=== PATIENT | female | born 1960 | race Caucasian/White ===

== ENCOUNTER 2022-11-30 19:33 | Inpatient (IN) | payer BC ==
[~2022-11-30] VITALS: Ht 167.6 cm; Wt 57.6 kg
[2022-11-30] MEDS ORDERED: NACL 0.9% 1,000 ML IV ONE (19:45)
[2022-11-30 19:55] VITALS: BP_SYST 114
[2022-11-30 20:30] LABS: BASOPHILS % (AUTO) 0.5 % (0.0-2.0); EOSINOPHILS % (AUTO) 0.1 % (0.0-4.0); HEMATOCRIT 31.5 % (36-48); HEMOGLOBIN 10.5 g/dL (12.0-16.0); LYMPHOCYTES # (AUTO) 0.7 K/uL (1.0-5.5); LYMPHOCYTES % (AUTO) 16.3 % (20.5-51.5); MEAN CORPUSCULAR HEMOGLOBIN 28 pg (27-31); MEAN CORPUSCULAR HGB CONC 34 % (32-36); MEAN CORPUSCULAR VOLUME 83 fL (79.0-98.0); MONOCYTES # (AUTO) 0.6 K/uL (0.0-1.0); MONOCYTES % (AUTO) 12.1 % (1.7-9.3); NEUTROPHILS # (AUTO) 3.2 K/uL (1.8-7.7); PLATELET COUNT (AUTO) 265 K/uL (130-430); RED BLOOD CELL COUNT(AUTO) 3.81 MIL/uL (4.2-6.2); RED CELL DISTRIBUTION WIDTH 17.4 % (9.0-15.0); WHITE BLOOD COUNT (AUTO) 4.6 K/uL (4.8-10.8)
[2022-11-30 20:48] LABS: INR 1.1 (0.8-1.2); PROTHROMBIN TIME 11.5 SECS (9.5-12.5)
[2022-11-30 20:58] LABS: ANION GAP 9 (5-15); CALCIUM 7.7 mg/dL (8.4-11.0); CHLORIDE 101 mmol/L (98-107); CREATININE 0.58 mg/dL (0.55-1.30); GFR AFRICAN AMERICAN 135 mL/min (>90); GLUCOSE 129 mg/dL (70-99); UREA NITROGEN, BLOOD 19 mg/dL (8-21)
[2022-11-30 21:06] LABS: ALANINE AMINOTRANSFERASE 12 U/L (12-78); ALBUMIN 2.6 g/dL (3.4-4.8); ASPARTATE AMINOTRANSFERASE 12 U/L (10-37); TOTAL BILIRUBIN 0.3 mg/dL (0.0-1.0)
[2022-11-30] MEDS ORDERED: PIPERACILLIN/TAZO 3.375 GM in NS 50 ML IV ONE (21:45)
[2022-11-30] MEDS ORDERED: ONDANSETRON HCL 4 MG/2 ML VIAL IVP ONE (23:45)
[2022-11-30] MEDS ORDERED: MORPHINE 4 MG INJ. 4 MG/ML VIAL IVP ONE (23:45)
[2022-11-30] MEDS ORDERED: PIPERACILLIN/TAZOBACTAM 3.375 GM/VIAL (ZOSYN) IV ONE (23:50)
[2022-12-01] MEDS ORDERED: BACL20TA PO (02:51)
[2022-12-01] MEDS ORDERED: LEVE500T99 PO (02:51)
[2022-12-01] MEDS ORDERED: COR3.125 PO (02:51)
[2022-12-01] MEDS ORDERED: LEVO88TA5 PO (02:51)
[2022-12-01] MEDS ORDERED: CYM30 PO (02:51)
[2022-12-01 04:23] LABS: BILIRUBIN,URINE NEGATIVE (NEGATIVE); BLOOD, URINE 2+ (NEGATIVE); CLARITY/URINE SL CLOUDY (CLEAR); COLOR,URINE YELLOW (YELLOW); GLUCOSE,URINE NEGATIVE (NEGATIVE); KETONES,URINE NEGATIVE (NEGATIVE); LEUKOCYTE ESTERASE ,URINE 3+ (NEGATIVE); NITRITE, URINE NEGATIVE (NEGATIVE); PROTEIN URINE NEGATIVE (NEGATIVE); UROBILINOGEN,URINE 0.2 (0.2-1.0)
[2022-12-01 04:32] LABS: BACTERIA,URINE FEW /HPF (None Seen)
[2022-12-01] MEDS ORDERED: MORPHINE 4 MG INJ. 4 MG/ML VIAL IVP PRN (06:00)
[2022-12-01] MEDS ORDERED: ONDANSETRON HCL 4 MG/2 ML VIAL IVP PRN (06:00)
[2022-12-01] MEDS ORDERED: NALOXONE HCL 0.4 MG/ML AMP (NARCAN) IVP PRN (06:00)
[2022-12-01] MEDS ORDERED: PIPERACILLIN/TAZO 3.375/DEX-IS 50 ML IV SCH (06:00)
[2022-12-01] MEDS ORDERED: LORazepam 2 MG/ML VIAL IVP PRN (06:00)
[2022-12-01] MEDS ORDERED: MORPHINE 2 MG/ML INJ. SYRINGE IVP PRN (06:00)
[2022-12-01] MEDS: D5/0.45 NS 1,000 ML IV SCH ×3 (06:09→18:15)
[2022-12-01 06:44] VITALS: BP_SYST 131
[2022-12-01] MEDS: LEVOTHYROXINE SODIUM 0.088 MG TABLET PO SCH (07:00)
[2022-12-01] MEDS: CARVEDILOL 3.125 MG TABLET (COREG) PO SCH ×2 (08:35→20:26)
[2022-12-01] MEDS: DULoxetine HCL 30 MG CAPSULE.DR (CYMBALTA) PO SCH (08:36)
[2022-12-01] MEDS ORDERED: levETIRAcetam 500 MG TABLET PO SCH (09:00)
[2022-12-01 10:49] LABS: BASOPHILS % (AUTO) 0.5 % (0.0-2.0); EOSINOPHILS % (AUTO) 0.1 % (0.0-4.0); LYMPHOCYTES # (AUTO) 0.9 K/uL (1.0-5.5); LYMPHOCYTES % (AUTO) 12.6 % (20.5-51.5); MEAN CORPUSCULAR HEMOGLOBIN 27 pg (27-31); MEAN CORPUSCULAR HGB CONC 33 % (32-36); MEAN CORPUSCULAR VOLUME 84 fL (79.0-98.0); MONOCYTES # (AUTO) 0.6 K/uL (0.0-1.0); MONOCYTES % (AUTO) 8.8 % (1.7-9.3); NEUTROPHILS # (AUTO) 5.2 K/uL (1.8-7.7); PLATELET COUNT (AUTO) 232 K/uL (130-430); RED BLOOD CELL COUNT(AUTO) 4.42 MIL/uL (4.2-6.2); RED CELL DISTRIBUTION WIDTH 17.2 % (9.0-15.0); WHITE BLOOD COUNT (AUTO) 6.7 K/uL (4.8-10.8)
[2022-12-01] MEDS ORDERED: DEXAMETHASONE 1 MG TABLET (DECADRON) PO SCH (11:00)
[2022-12-01 11:12] LABS: ALBUMIN 2.9 g/dL (3.4-4.8); C-REACTIVE PROTEIN QUANT 5.7 mg/dL (0-0.5); CALCIUM 7.8 mg/dL (8.4-11.0); CREATININE 0.48 mg/dL (0.55-1.30); TOTAL BILIRUBIN 0.3 mg/dL (0.0-1.0)
[2022-12-01 11:55] VITALS: BP_SYST 150
[2022-12-01] MEDS ORDERED: AZITHROMYCIN 500 MG in NS 250 ML IV ONE (12:00)
[2022-12-01] MEDS: ERTAPENEM SODIUM 1 GM in NS 50 ML IV SCH (13:05)
[2022-12-01] MEDS ORDERED: ENOXAPARIN SODIUM 40 MG/0.4 ML SYRINGE SUBCUT ONE (13:30)
[2022-12-01] MEDS ORDERED: PIPERACILLIN/TAZO 4.5GM/DEX-IS 100 ML IV ONE (14:45)
[2022-12-01 15:07] LABS: FREE T4 (FREE THYROXINE) 1.1 ng/dL (0.6-1.6); THYROID STIMULATING HORMONE 2.71 uIu/mL (0.34-4.82)
[2022-12-01 18:40] VITALS: BP_SYST 118
[2022-12-01 20:00] VITALS: BP_SYST 143
[2022-12-01] MEDS: ENOXAPARIN SODIUM 40 MG/0.4 ML SYRINGE SUBCUT SCH (20:26)
[2022-12-01] MEDS: PIPERACILLIN/TAZO 4.5GM/DEX-IS 100 ML IV SCH (21:28)
[2022-12-02 00:59] VITALS: BP_SYST 139
[2022-12-02] MEDS: D5/0.45 NS 1,000 ML IV SCH ×3 (05:18→20:10)
[2022-12-02] MEDS: PIPERACILLIN/TAZO 4.5GM/DEX-IS 100 ML IV SCH (05:19)
[2022-12-02] MEDS: LEVOTHYROXINE SODIUM 0.088 MG TABLET PO SCH (06:35)
[2022-12-02 08:00] VITALS: BP_SYST 135
[2022-12-02] MEDS: levETIRAcetam 500 MG in NS 100 ML IV SCH ×2 (08:22→20:07)
[2022-12-02] MEDS: DEXAMETHASONE SOD PHOSPHATE 4 MG/ML VIAL IVP SCH (08:22)
[2022-12-02] MEDS: DULoxetine HCL 30 MG CAPSULE.DR (CYMBALTA) PO SCH (08:23)
[2022-12-02] MEDS: CARVEDILOL 3.125 MG TABLET (COREG) PO SCH ×2 (08:23→20:05)
[2022-12-02] MEDS: ENOXAPARIN SODIUM 40 MG/0.4 ML SYRINGE SUBCUT SCH ×2 (08:23→20:04)
[2022-12-02 12:00] VITALS: BP_SYST 141
[2022-12-02] MEDS: ERTAPENEM SODIUM 1 GM in NS 50 ML IV SCH (12:37)
[2022-12-02] MEDS ORDERED: FLUCONAZOLE 200 mg/ NS 100 ML IV SCH (14:00)
[2022-12-02 16:00] VITALS: BP_SYST 137
[2022-12-02 20:00] VITALS: BP_SYST 119
[2022-12-02] MEDS: BACLOFEN 10 MG TABLET PO SCH (20:05)
[2022-12-03 01:39] VITALS: BP_SYST 131
[2022-12-03 05:04] LABS: BASOPHILS % (AUTO) 0.1 % (0.0-2.0); EOSINOPHILS % (AUTO) 0.1 % (0.0-4.0); HEMATOCRIT 32.9 % (36-48); HEMOGLOBIN 10.8 g/dL (12.0-16.0); LYMPHOCYTES # (AUTO) 1.1 K/uL (1.0-5.5); LYMPHOCYTES % (AUTO) 19.8 % (20.5-51.5); MEAN CORPUSCULAR HEMOGLOBIN 27 pg (27-31); MEAN CORPUSCULAR HGB CONC 33 % (32-36); MEAN CORPUSCULAR VOLUME 83 fL (79.0-98.0); MONOCYTES # (AUTO) 0.4 K/uL (0.0-1.0); MONOCYTES % (AUTO) 6.4 % (1.7-9.3); NEUTROPHILS # (AUTO) 4.1 K/uL (1.8-7.7); NEUTROPHILS % (AUTO) 73.6 % (40.0-70.0); PLATELET COUNT (AUTO) 194 K/uL (130-430); RED BLOOD CELL COUNT(AUTO) 3.97 MIL/uL (4.2-6.2); RED CELL DISTRIBUTION WIDTH 17.1 % (9.0-15.0); WHITE BLOOD COUNT (AUTO) 5.5 K/uL (4.8-10.8)
[2022-12-03 05:34] LABS: CALCIUM 8.2 mg/dL (8.4-11.0); CREATININE 0.44 mg/dL (0.55-1.30)
[2022-12-03] MEDS: LEVOTHYROXINE SODIUM 0.088 MG TABLET PO SCH (06:16)
[2022-12-03 08:00] VITALS: BP_SYST 155
[2022-12-03] MEDS: CARVEDILOL 3.125 MG TABLET (COREG) PO SCH ×2 (09:00→21:00)
[2022-12-03] MEDS: DULoxetine HCL 30 MG CAPSULE.DR (CYMBALTA) PO SCH (09:00)
[2022-12-03] MEDS: BACLOFEN 10 MG TABLET PO SCH ×2 (09:00→21:00)
[2022-12-03] MEDS: DEXAMETHASONE SOD PHOSPHATE 4 MG/ML VIAL IVP SCH (09:27)
[2022-12-03] MEDS: ENOXAPARIN SODIUM 40 MG/0.4 ML SYRINGE SUBCUT SCH ×2 (09:27→20:46)
[2022-12-03] MEDS: levETIRAcetam 500 MG in NS 100 ML IV SCH ×2 (09:27→20:34)
[2022-12-03] MEDS: D5/0.45 NS 1,000 ML IV SCH ×2 (10:45→18:42)
[2022-12-03 12:56] VITALS: BP_SYST 142
[2022-12-03] MEDS: ERTAPENEM SODIUM 1 GM in NS 50 ML IV SCH (13:13)
[2022-12-03] MEDS: FLUCONAZOLE 100 mg/ NS 50 ML IV SCH (14:20)
[2022-12-03 16:00] VITALS: BP_SYST 149
[2022-12-03 20:00] VITALS: BP_SYST 147
[2022-12-03] MEDS ORDERED: KCL 20 mEq in 100 mL (PREMIX) 100 ML IV ONE ×2 (20:30→22:30)
[2022-12-03] MEDS: POTASSIUM CHLORIDE 20 mEq in 100 mL (PREMIX) 100 ML x 2 doses IV SCH ×2 (21:27→23:54)
[2022-12-04 02:01] VITALS: BP_SYST 131
[2022-12-04 06:06] LABS: BASOPHILS % (AUTO) 0.1 % (0.0-2.0); HEMATOCRIT 32.7 % (36-48); HEMOGLOBIN 10.7 g/dL (12.0-16.0); LYMPHOCYTES # (AUTO) 0.7 K/uL (1.0-5.5); LYMPHOCYTES % (AUTO) 11.3 % (20.5-51.5); MEAN CORPUSCULAR HEMOGLOBIN 27 pg (27-31); MEAN CORPUSCULAR HGB CONC 33 % (32-36); MEAN CORPUSCULAR VOLUME 83 fL (79.0-98.0); MONOCYTES # (AUTO) 0.4 K/uL (0.0-1.0); MONOCYTES % (AUTO) 6.9 % (1.7-9.3); NEUTROPHILS # (AUTO) 5.1 K/uL (1.8-7.7); NEUTROPHILS % (AUTO) 81.7 % (40.0-70.0); PLATELET COUNT (AUTO) 197 K/uL (130-430); RED BLOOD CELL COUNT(AUTO) 3.96 MIL/uL (4.2-6.2); RED CELL DISTRIBUTION WIDTH 16.5 % (9.0-15.0); WHITE BLOOD COUNT (AUTO) 6.3 K/uL (4.8-10.8)
[2022-12-04 06:27] LABS: CALCIUM 8.4 mg/dL (8.4-11.0); CREATININE 0.48 mg/dL (0.55-1.30)
[2022-12-04 06:35] LABS: PROTHROMBIN TIME 10.2 SECS (9.5-12.5)
[2022-12-04] MEDS: LEVOTHYROXINE SODIUM 0.088 MG TABLET PO SCH (06:46)
[2022-12-04] MEDS: D5/0.45 NS 1,000 ML IV SCH ×3 (06:54→21:40)
[2022-12-04 08:33] VITALS: BP_SYST 114
[2022-12-04] MEDS: ENOXAPARIN SODIUM 40 MG/0.4 ML SYRINGE SUBCUT SCH ×2 (09:00→21:44)
[2022-12-04] MEDS: DULoxetine HCL 30 MG CAPSULE.DR (CYMBALTA) PO SCH (09:00)
[2022-12-04] MEDS: BACLOFEN 10 MG TABLET PO SCH ×2 (09:00→21:00)
[2022-12-04] MEDS: CARVEDILOL 3.125 MG TABLET (COREG) PO SCH ×2 (09:00→21:00)
[2022-12-04] MEDS: levETIRAcetam 500 MG in NS 100 ML IV SCH ×2 (10:07→21:42)
[2022-12-04] MEDS: DEXAMETHASONE SOD PHOSPHATE 4 MG/ML VIAL IVP SCH (10:07)
[2022-12-04 11:47] VITALS: BP_SYST 123
[2022-12-04] MEDS ORDERED: CEFAZOLIN 1 GM IVPB PREMIX 50 ML IV ONE (12:00)
[2022-12-04] MEDS: FLUCONAZOLE 100 mg/ NS 50 ML IV SCH (13:00)
[2022-12-04] MEDS: ERTAPENEM SODIUM 1 GM in NS 50 ML IV SCH (14:21)
[2022-12-04 19:00] VITALS: BP_SYST 116
[2022-12-04 20:44] LABS: PROTHROMBIN TIME 10.8 SECS (9.5-12.5)
[2022-12-04 21:00] VITALS: BP_SYST 149
[2022-12-05 01:21] VITALS: BP_SYST 148
[2022-12-05 05:37] LABS: BASOPHILS % (AUTO) 0.2 % (0.0-2.0); HEMATOCRIT 34.9 % (36-48); HEMOGLOBIN 11.4 g/dL (12.0-16.0); LYMPHOCYTES # (AUTO) 0.9 K/uL (1.0-5.5); LYMPHOCYTES % (AUTO) 34.6 % (20.5-51.5); MEAN CORPUSCULAR HEMOGLOBIN 27 pg (27-31); MEAN CORPUSCULAR HGB CONC 33 % (32-36); MEAN CORPUSCULAR VOLUME 82 fL (79.0-98.0); MONOCYTES # (AUTO) 0.5 K/uL (0.0-1.0); MONOCYTES % (AUTO) 17.6 % (1.7-9.3); NEUTROPHILS # (AUTO) 1.3 K/uL (1.8-7.7); NEUTROPHILS % (AUTO) 47.6 % (40.0-70.0); PLATELET COUNT (AUTO) 177 K/uL (130-430); RED BLOOD CELL COUNT(AUTO) 4.26 MIL/uL (4.2-6.2); RED CELL DISTRIBUTION WIDTH 16.8 % (9.0-15.0); WHITE BLOOD COUNT (AUTO) 2.7 K/uL (4.8-10.8)
[2022-12-05 05:58] LABS: CALCIUM 8.5 mg/dL (8.4-11.0); CREATININE 0.55 mg/dL (0.55-1.30)
[2022-12-05 06:24] LABS: PROTHROMBIN TIME 10.4 SECS (9.5-12.5)
[2022-12-05] MEDS: LEVOTHYROXINE SODIUM 0.088 MG TABLET PO SCH (06:45)
[2022-12-05] MEDS ORDERED: fentaNYL CITRATE/PF 100 MCG/2 ML AMP ONE (07:17)
[2022-12-05] MEDS ORDERED: MIDAZOLAM HCL 5 MG/5 ML VIAL ONE (07:17)
[2022-12-05] MEDS: ENOXAPARIN SODIUM 40 MG/0.4 ML SYRINGE SUBCUT SCH (09:00)
[2022-12-05] MEDS: DULoxetine HCL 30 MG CAPSULE.DR (CYMBALTA) PO SCH (09:00)
[2022-12-05] MEDS: BACLOFEN 10 MG TABLET PO SCH ×2 (09:00→20:03)
[2022-12-05] MEDS: CARVEDILOL 3.125 MG TABLET (COREG) PO SCH ×2 (09:00→20:04)
[2022-12-05 10:02] VITALS: BP_SYST 116
[2022-12-05] MEDS: levETIRAcetam 500 MG in NS 100 ML IV SCH ×2 (10:41→20:03)
[2022-12-05] MEDS: DEXAMETHASONE SOD PHOSPHATE 4 MG/ML VIAL IVP SCH (10:41)
[2022-12-05] MEDS ORDERED: AMOX-423 PO (11:36)
[2022-12-05 12:06] VITALS: BP_SYST 146
[2022-12-05] MEDS: D5/0.45 NS 1,000 ML IV SCH ×2 (12:45→20:17)
[2022-12-05] MEDS: ERTAPENEM SODIUM 1 GM in NS 50 ML IV SCH (13:21)
[2022-12-05] MEDS: FLUCONAZOLE 100 mg/ NS 50 ML IV SCH (14:32)
[2022-12-05 15:49] VITALS: BP_SYST 138
[2022-12-05 19:58] VITALS: BP_SYST 150
[2022-12-06 00:27] VITALS: BP_SYST 149
[2022-12-06] MEDS: LEVOTHYROXINE SODIUM 0.088 MG TABLET PO SCH (06:08)
[2022-12-06 08:00] VITALS: BP_SYST 131
[2022-12-06] MEDS: CARVEDILOL 3.125 MG TABLET (COREG) PO SCH ×2 (08:27→20:30)
[2022-12-06] MEDS: D5/0.45 NS 1,000 ML IV SCH ×2 (08:27→17:01)
[2022-12-06] MEDS: DEXAMETHASONE SOD PHOSPHATE 4 MG/ML VIAL IVP SCH (08:28)
[2022-12-06] MEDS: BACLOFEN 10 MG TABLET PO SCH ×2 (08:28→20:30)
[2022-12-06] MEDS: DULoxetine HCL 30 MG CAPSULE.DR (CYMBALTA) PO SCH (08:29)
[2022-12-06] MEDS: levETIRAcetam 500 MG in NS 100 ML IV SCH ×2 (08:29→20:32)
[2022-12-06] MEDS ORDERED: ACETAMINOPHEN 650 MG/20.3 ML UDC GT PRN (10:15)
[2022-12-06] MEDS ORDERED: IBUPROFEN 800 MG TABLET GT PRN (10:15)
[2022-12-06 12:00] VITALS: BP_SYST 124
[2022-12-06] MEDS: ERTAPENEM SODIUM 1 GM in NS 50 ML IV SCH (13:44)
[2022-12-06] MEDS: FLUCONAZOLE 100 mg/ NS 50 ML IV SCH (15:21)
[2022-12-06 16:00] VITALS: BP_SYST 132
[2022-12-06 20:00] VITALS: BP_SYST 165
[2022-12-07 01:58] VITALS: BP_SYST 133
[2022-12-07 02:36] VITALS: BP_SYST 133
== END 2022-12-07 07:03 | disposition home health service (06) | DRG 58 ==
LOC: SED 19:33 → SMU 22:44
PROVIDERS: ADMIT Specialist; ATTEND Family Medicine
PROC: 0DH68UZ Insertion of Feeding Device into Stomach, Via Natural or Artificial Opening Endoscopic (ICD-10-PCS; principal; 2022-12-05 07:30)
DX: G35 Multiple sclerosis (principal); J69.0 Pneumonitis due to inhalation of food and vomit; E44.0 Moderate protein-calorie malnutrition; S73.004A Unspecified dislocation of right hip, initial encounter; N39.0 Urinary tract infection, site not specified; R65.10 Systemic inflammatory response syndrome (SIRS) of non-infectious origin without acute organ dysfunction; R13.10 Dysphagia, unspecified; G82.20 Paraplegia, unspecified; E03.9 Hypothyroidism, unspecified; N31.9 Neuromuscular dysfunction of bladder, unspecified; F03.90 Unspecified dementia, unspecified severity, without behavioral disturbance, psychotic disturbance, mood disturbance, and anxiety; I10 Essential (primary) hypertension; K29.70 Gastritis, unspecified, without bleeding; B37.9 Candidiasis, unspecified; Z20.822 Contact with and (suspected) exposure to COVID-19; Z93.3 Colostomy status; Z79.899 Other long term (current) drug therapy; Z68.20 Body mass index [BMI] 20.0-20.9, adult; M24.452 Recurrent dislocation, left hip
CPT/HCPCS: 36415; 36600; 43246; 70450-TC; 70551; 71045; 72170-TC; 72192-TC; 76376; 80048; 80053; 81000; 82803; 83605; 83735; 83880; 84100; 84439; 84443; 84484; 85025; 85379; 85610-TC; 85730-TC; 86140; 86886; 86900; 86901; 87040; 87081; 87086; 92610-GN; 93005; 96361; 96365; 96375; 97110-GP; 99285; J0456; J0690; J1100; J1335; J1450; J1650; J1953; J2250; J2270; J2405; J2543; J3010; J3480; J7050